=== PATIENT | female | born 1995 | race Caucasian/White ===

== ENCOUNTER 2017-05-28 02:18 | Emergency (ER) | payer SELFPAY ==
--- NOTE | 2017-06-15 16:29 | ERD ---
ER Documentation Chief Complaint Date/Time DATE: 06/15/17 TIME: 16:27 Chief Complaint HPI This patient is a 21-year-old female presenting to the emergency department with complaints of discoloration of her right thumb which has been ongoing for the past 2 days. Symptoms are worsening and constant. She states that she does wear acrylic nails and this may have caused the issue. She denies any fevers, chills, significant redness, warmth, or other symptoms currently. She has had no pain. ROS All systems reviewed and are negative except as per history of present illness. Physical Exam Physical Exam Const: Nontoxic, well-appearing female in no acute distress. Head: Atraumatic Eyes: Normal Conjunctiva ENT: Normal External Ears, Nose and Mouth. Skin: No petechiae or rashes Ext: There is some slight discoloration of the right thumb pad. It appears yellow. There is no erythema, warmth, emphatic streaking, edema, or other symptoms. 2+ radial pulses noted. Neur: Awake and alert Psych: Normal Mood and Affect Procedures/MDM 21-year-old female presents to the emergency department with complaints of discoloration of her right thumb. History and physical examination is not concerning for any concerning latest. The patient's symptoms may be due to normal variant of the skin color, however I will give her prescription for Bactroban to prevent possible infection. I have low suspicion for significant cellulitis, sepsis, or other emergent conditions at time of discharge. The patient is to follow-up with her primary care physician in 1-2 days. She is to return immediately for any new or worsening symptoms. Departure Diagnosis: Primary Impression: Cellulitis of right finger Condition: DODIE Selby PA-C Jun 15, 2017 16:29
== END 2017-05-28 04:10 | disposition home or self-care (01) ==
LOC: FTE 02:18
DX: L03.011 Cellulitis of right finger (principal)
CPT/HCPCS: 99283